=== PATIENT | male | born 2000 ===

== ENCOUNTER 2025-07-02 16:23 | Emergency (ER) | payer MEDICAID, OTHER ==
[~2025-07-02] VITALS: Ht 177.8 cm; Wt 68.0 kg
[2025-07-02 16:31] VITALS: BP 120/77
[2025-07-02] MEDS ORDERED: FLUORESCEIN SODIUM 1 MG STRIP ONE (16:38)
[2025-07-02] MEDS ORDERED: TETRACAINE HCL 0.5% OPHT DROP 2 ML BOTTLE ONE (16:38)
[2025-07-02] MEDS ORDERED: GENT5DRO23 RIGHTEYE (18:01)
[2025-07-02 18:07] VITALS: BP 120/77; TEMP 97.9; O2SAT 97
== END 2025-07-02 18:08 | disposition home or self-care (01) ==
LOC: ER 16:33
DX: S05.01XA Injury of conjunctiva and corneal abrasion without foreign body, right eye, initial encounter (principal); X58.XXXA Exposure to other specified factors, initial encounter; Y93.89 Activity, other specified; Y92.89 Other specified places as the place of occurrence of the external cause; Y99.8 Other external cause status
CPT/HCPCS: A4606; A4663